=== PATIENT | female | born 1930 | race Caucasian/White ===

== ENCOUNTER → 2021-03-04 | Outpatient (CLI) | payer OTHER | LOC: HYPER 07:26 | PROVIDERS: ATTEND Emergency Medicine | DX: L89.893 Pressure ulcer of other site, stage 3 (principal); L97.512 Non-pressure chronic ulcer of other part of right foot with fat layer exposed; M05.9 Rheumatoid arthritis with rheumatoid factor, unspecified; I10 Essential (primary) hypertension; E03.9 Hypothyroidism, unspecified; D51.9 Vitamin B12 deficiency anemia, unspecified; G47.31 Primary central sleep apnea; F41.9 Anxiety disorder, unspecified; G25.9 Extrapyramidal and movement disorder, unspecified; Z79.899 Other long term (current) drug therapy; Z79.82 Long term (current) use of aspirin; Z87.891 Personal history of nicotine dependence; Z90.49 Acquired absence of other specified parts of digestive tract; Z90.89 Acquired absence of other organs ==

== ENCOUNTER → 2021-03-18 | Outpatient (CLI) | payer OTHER | LOC: HYPER 09:26 | PROVIDERS: ATTEND Emergency Medicine | DX: L89.893 Pressure ulcer of other site, stage 3 (principal); S81.811A Laceration without foreign body, right lower leg, initial encounter; M05.9 Rheumatoid arthritis with rheumatoid factor, unspecified; I10 Essential (primary) hypertension; D51.9 Vitamin B12 deficiency anemia, unspecified; E03.9 Hypothyroidism, unspecified; M06.9 Rheumatoid arthritis, unspecified; G47.31 Primary central sleep apnea; Z87.891 Personal history of nicotine dependence; Z79.82 Long term (current) use of aspirin; Z79.899 Other long term (current) drug therapy; X58.XXXA Exposure to other specified factors, initial encounter; Y93.89 Activity, other specified; Y92.89 Other specified places as the place of occurrence of the external cause; Y99.8 Other external cause status ==

== ENCOUNTER → 2021-04-01 | Outpatient (CLI) | payer OTHER | LOC: HYPER 09:16 | PROVIDERS: ATTEND Emergency Medicine | DX: L89.893 Pressure ulcer of other site, stage 3 (principal); S81.811D Laceration without foreign body, right lower leg, subsequent encounter; L84 Corns and callosities; M05.9 Rheumatoid arthritis with rheumatoid factor, unspecified; I10 Essential (primary) hypertension; D51.9 Vitamin B12 deficiency anemia, unspecified; E03.9 Hypothyroidism, unspecified; G47.31 Primary central sleep apnea; F41.9 Anxiety disorder, unspecified; Z87.891 Personal history of nicotine dependence; Z79.82 Long term (current) use of aspirin; X58.XXXD Exposure to other specified factors, subsequent encounter ==

== ENCOUNTER → 2021-04-20 | Outpatient (CLI) | payer OTHER | LOC: HYPER 10:14 | PROVIDERS: ATTEND Emergency Medicine | DX: L89.893 Pressure ulcer of other site, stage 3 (principal); S81.811D Laceration without foreign body, right lower leg, subsequent encounter; L84 Corns and callosities; M05.9 Rheumatoid arthritis with rheumatoid factor, unspecified; I10 Essential (primary) hypertension; D51.9 Vitamin B12 deficiency anemia, unspecified; E03.9 Hypothyroidism, unspecified; G47.31 Primary central sleep apnea; F41.9 Anxiety disorder, unspecified; Z87.891 Personal history of nicotine dependence; Z79.82 Long term (current) use of aspirin; X58.XXXD Exposure to other specified factors, subsequent encounter ==

== ENCOUNTER → 2021-05-04 | Outpatient (CLI) | payer OTHER | LOC: HYPER 10:51 | PROVIDERS: ATTEND Emergency Medicine | DX: L89.893 Pressure ulcer of other site, stage 3 (principal); S80.811A Abrasion, right lower leg, initial encounter; M05.9 Rheumatoid arthritis with rheumatoid factor, unspecified; I10 Essential (primary) hypertension; D51.9 Vitamin B12 deficiency anemia, unspecified; E03.9 Hypothyroidism, unspecified; G47.31 Primary central sleep apnea; E78.5 Hyperlipidemia, unspecified; F41.9 Anxiety disorder, unspecified; Z87.891 Personal history of nicotine dependence; Z79.82 Long term (current) use of aspirin; Z79.899 Other long term (current) drug therapy; X58.XXXA Exposure to other specified factors, initial encounter; Y93.89 Activity, other specified; Y92.89 Other specified places as the place of occurrence of the external cause; Y99.8 Other external cause status ==